=== PATIENT | female | born 1980 | race Caucasian/White ===

== ENCOUNTER 2016-08-20 20:42 | Emergency (ER) | payer OTHER ==
[2016-08-20 21:00] VITALS: BMI 27.4
--- NOTE | 2016-08-20 21:33 | PDOC ---
History of Present Illness - General History Source: Patient Exam Limitations: No Limitations - History of Present Illness Initial Comments: 08/20/16 22:47 Patient is a 36 year old female with no significant past medical history who presents to the ED with headache. 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 She notes that the pain has radiated from her left eye to the back of the head. She states that she saw an opthamologist who performed multiple tests and noted that nothing is wrong with the eye. Patient notes that the headache is constant and intense which prompted her to come in. She notes her LMP was 08/13/16. She denies fever, chills, nausea, vomiting, diarrhea and constipation. Allergies: none <Jesusita Campos - Last Filed: 08/20/16 22:47> <Luisa Fitzgerald - Last Filed: 08/21/16 00:29> - General Chief Complaint: Headache Stated Complaint: HEADACHE Time Seen by Provider: 08/20/16 21:32 Past History <Jesusita Campos - Last Filed: 08/20/16 22:47> - Psycho/Social/Smoking Cessation Hx Suicidal Ideation: No Smoking History: Never smoked Hx Alcohol Use: No Drug/Substance Use Hx: No <Luisa Fitzgerald - Last Filed: 08/21/16 00:29> - Past Medical History Allergies/Adverse Reactions: Allergies Allergy/AdvReac Type Severity Reaction Status Date / Time No Known Allergies Allergy Verified 08/20/16 20:54 Home Medications: Ambulatory Orders Norgestimate-Ethinyl Estradiol [Ortho Tri-Cyclen Lo] 1 tab PO DAILY 02/25/16 Aspirin/Acetaminophen/Caffeine [Excedrin Migraine Caplet] 1 each PO ASDIR Review of Systems - Review of Systems Able to Perform ROS?: Yes Comments:: 08/20/16 22:47 CONSTITUTIONAL: Absent: fever, chills, diaphoresis, generalized weakness, malaise, loss of appetite HEENT: Present: eye pain Absent: rhinorrhea, nasal congestion, throat pain, throat swelling, difficulty swallowing, mouth swelling, ear pain, visual Changes CARDIOVASCULAR: Absent: chest pain, syncope, palpitations, irregular heart rate, lightheadedness , peripheral edema RESPIRATORY: Absent: cough, shortness of breath, dyspnea with exertion, orthopnea, wheezing, stridor, hemoptysis GASTROINTESTINAL: Absent: abdominal pain, abdominal distension, nausea, vomiting, diarrhea, constipation, melena, hematochezia GENITOURINARY: Absent: dysuria, frequency, urgency, hesitancy, hematuria, flank pain, genital pain MUSCULOSKELETAL: Absent: myalgia, arthralgia, joint swelling SKIN: Absent: rash, itching, pallor HEMATOLOGIC/IMMUNOLOGIC: Absent: easy bleeding, easy bruising, lymphadenopathy, frequent infections ENDOCRINE: Absent: unexplained weight gain, unexplained weight loss, heat intolerance, cold intolerance NEUROLOGIC: Present: headache Absent: focal weakness or paresthesias, dizziness, unsteady gait, seizure, mental status changes, bladder or bowel incontinence PSYCHIATRIC: Absent: anxiety, depression, suicidal or homicidal ideation, hallucinations. <Jesusita Campos - Last Filed: 08/20/16 22:47> *Physical Exam - Vital Signs Last Vital Signs Temp Pulse Resp BP Pulse Ox 97.9 F 75 18 122/81 100 08/20/16 20:55 08/20/16 20:55 08/20/16 20:55 08/20/16 20:55 08/20/16 20:55 - Physical Exam Comments: 08/20/16 22:48 GENERAL: +Normotensive, Well developed, well nourished. Awake and alert. No acute distress. HEENT: +No visual field cuts, +No diplopia Normocephalic, atraumatic. PERRLA, EOMI. No conjunctival pallor. Sclera are non- icteric. Moist mucous membranes. Oropharynx is clear. NECK: Supple. Full ROM. No JVD. Carotid pulses 2+ and symmetric, without bruits. No thyromegaly. No lymphadenopathy. CARDIOVASCULAR: Regular rate and rhythm. No murmurs, rubs, or gallops. Distal pulses are 2+ and symmetric. PULMONARY: No evidence of respiratory distress. Lungs clear to auscultation bilaterally. No wheezing, rales or rhonchi. ABDOMINAL: Soft. Non-tender. Non-distended. No rebound or guarding. No organomegaly. Normoactive bowel sounds. MUSCULOSKELETAL Normal range of motion at all joints. No bony deformities or tenderness. No CVA tenderness. EXTREMITIES: No cyanosis. No clubbing. No edema. No calf tenderness. SKIN: Warm and dry. Normal capillary refill. No rashes. No jaundice. NEUROLOGICAL: Alert, awake, appropriate. Cranial nerves 2-12 intact. No deficits to light touch and temperature in face, upper extremities and lower extremities. No motor deficits in the in face, upper extremities and lower extremities. Normoreflexic in the upper and lower extremities. Normal speech. Toes are down-going bilaterally. Gait is normal without ataxia. PSYCHIATRIC: Cooperative. Good eye contact. Appropriate mood and affect. <Jesusita Campos - Last Filed: 08/20/16 22:47> - Vital Signs Last Vital Signs Temp Pulse Resp BP Pulse Ox 97.9 F 75 18 122/81 100 08/20/16 20:55 08/20/16 20:55 08/20/16 20:55 08/20/16 20:55 08/20/16 20:55 <Luisa Fitzgerald - Last Filed: 08/21/16 00:29> ED Treatment Course - LABORATORY CBC & Chemistry Diagram: 08/20/16 22:00 08/20/16 22:00 - ADDITIONAL ORDERS Additional order review: Laboratory Results 08/20/16 22:00 Serum , Qual Negative 08/20/16 22:00 RBC 4.02 MCV 89.1 MCHC 33.3 RDW 15.5 MPV 8.8 Neutrophils % 47.3 Lymphocytes % 44.2 H Monocytes % 6.9 Eosinophils % 0.7 Basophils % 0.9 - Medications Given in the ED: ED Medications Discontinued Medications Generic Name Dose Route Start Last Admin Trade Name Freq PRN Reason Stop Dose Admin Diphenhydramine HCl 25 mg 08/20/16 21:42 08/20/16 21:50 Benadryl Injection - IVPUSH 08/20/16 21:43 25 mg ONCE ONE Administration Sodium Chloride 1,000 mls @ 1,000 mls/hr 08/20/16 21:42 08/20/16 21:50 Normal Saline - IV 08/20/16 22:41 1,000 mls/hr ASDIR STA Administration Metoclopramide HCl 10 mg 08/20/16 21:42 08/20/16 21:55 Reglan Injection - IVPB 08/20/16 21:43 10 mg ONCE ONE Administration <Jesusita Campos - Last Filed: 08/20/16 22:47> - LABORATORY CBC & Chemistry Diagram: 08/20/16 22:00 08/20/16 22:00 <Luisa Fitzgerald - Last Filed: 08/21/16 00:29> Medical Decision Making - Medical Decision Making 08/21/16 00:28 36 yo female neg preg -ct scan head negative -headache resolved -no focal neuro deficits -normal labs plan-f/o DrFoster headache specialist <Luisa Fitzgerald - Last Filed: 08/21/16 00:29> *DC/Admit/Observation/Transfer - Attestations Scribe Attestion: 08/20/16 22:48 Documentation prepared by SARAH Barnhart, acting as medical supervisor for Luisa Fitzgerald MD. <Jesusita Campos - Last Filed: 08/20/16 22:47> <Luisa Fitzgerald - Last Filed: 08/21/16 00:29> Diagnosis at time of Disposition: Headache Qualifiers: Headache type: tension-type Headache chronicity pattern: unspecified pattern Intractability: not intractable Qualified Code(s): G44.209 - Tension-type headache, unspecified, not intractable - Discharge Dispostion Disposition: HOME Condition at time of disposition: Stable - Referrals Referrals: STAFF,NOT ON [Primary Care Provider] - Migdalia Priest MD [Staff Physician] - - Patient Instructions Printed Discharge Instructions: DI for Headache Additional Instructions: please followup with the neurologist for persistent headaches
[2016-08-20] MEDS ORDERED: SODIUM CHLORIDE 1,000 ML IV STA (21:42)
[2016-08-20] MEDS ORDERED: METOCLOPRAMIDE HCL INJECTION 10 MG/2 ML VIAL IVPB ONE (21:42)
[2016-08-20] MEDS ORDERED: METOCLOPRAMIDE HCL INJECTION 10 MG/2 ML VIAL ONE (21:47)
[2016-08-20 22:11] LABS: BASOPHIL 0.9 % (0-2.0); EOSINOPHIL 0.7 % (0-4.5); MCH 29.6 pg (25.7-33.7); MCHC 33.3 g/dl (32.0-36.0); MEAN CELL VOLUME 89.1 fl (80-96); MEAN PLT VOLUME 8.8 fl (7.5-11.1); NEUTROPHILS 47.3 % (42.8-82.8); PLATELET COUNT 235 K/MM3 (134-434); RDW 15.5 % (11.6-15.6); WHITE BLOOD COUNT 6.3 K/mm3 (4.0-10.0)
[2016-08-20 22:53] LABS: ALBUMIN 3.8 g/dl (3.4-5.0); ALK PHOS 55 U/L (45-117); ANION GAP 10 (8-16); BILIRUBIN,TOTAL 0.2 mg/dL (0.2-1.0); CO2 26 mmol/L (21-32); CREATININE 0.7 mg/dL (0.55-1.02); GLUCOSE,RANDOM 93 mg/dL (74-106); SGOT/AST 13 U/L (15-37); SGPT/ALT 24 U/L (12-78); TOT PROT 7.6 g/dl (6.4-8.2)
[2016-08-20] MEDS ORDERED: DEXAMETHASONE SOD PHOSPHATE 10 MG/1 ML VIAL IVPB ONE (23:10)
[2016-08-20] MEDS ORDERED: DEXAMETHASONE SOD PHOSPHATE 10 MG/1 ML VIAL ONE (23:28)
[2016-08-21 00:41] VITALS: BP 120/62; PULSE 74; TEMP 98.3
== END 2016-08-21 00:41 | disposition home or self-care (01) ==
LOC: JER 20:42
PROC: 3E0333Z Introduction of Anti-inflammatory into Peripheral Vein, Percutaneous Approach (ICD-10-PCS; principal; 2016-08-20)
PROC: 3E033GC Introduction of Other Therapeutic Substance into Peripheral Vein, Percutaneous Approach (ICD-10-PCS; 2016-08-20)
DX: G44.209 Tension-type headache, unspecified, not intractable (principal)
CPT/HCPCS: 36415; 70450-TC; 80053; 84703; 85025; 96374; 96375; 99283-25

== ENCOUNTER → 2017-08-30 | Day surgery (SDC) | payer OTHER | END | disposition home or self-care (01) | LOC: JRADIR 10:19 | PROVIDERS: ATTEND Obstetrics & Gynecology | PROC: BU18YZZ Fluoroscopy of Uterus and Fallopian Tubes using Other Contrast (ICD-10-PCS; principal; 2017-08-30) | DX: N97.9 Female infertility, unspecified (principal) | CPT/HCPCS: 36415; 58340; 74740-TC-FY; 76000-TC-FY; 84702 ==